=== PATIENT | female | born 1990 | race African-American/Black ===

== ENCOUNTER 2021-01-26 22:42 | Emergency (ER) | payer OTHER, SELFPAY ==
--- NOTE | ~2021-01-26 | XR_ITS ---
EXAMINATION: XR chest 1V portable INDICATION: Chest pain TECHNIQUE: Portable AP chest at 2303 hours COMPARISON: None available FINDINGS: The lungs are free of acute opacities. There is no pleural effusion or pneumothorax. The ca rdiomediastinal silhouette is normal. The visualized bones and soft tissues are unremarkable. IMPRESSION: 1. No acute cardiopulmonary abnormality. Reviewed, dictated and finalized at location A. PULLER
--- NOTE | ~2021-01-26 | CT_ITS ---
EXAMINATION: CTA chest PE protocol DATE: 01/26/2021 23:56 INDICATION: Chest pain TECHNIQUE: Computed tomography angiography (CTA) of the chest was performed with 100 mL Omnipaque-350 intravenous contrast timed to evaluate the pulmonary arteries. Coronal maximum intensity projection 3D-reconstructions were created by the technologist. The dose-length product (DLP) was 227.55 mGy-cm. Automated exposure control and iterative reconstruction technique were employed. COMPARISON: None. FINDINGS: The pulmonary arteries are well-opacified. No pulmonary embolism is identified. The lungs a re free of acute opacities. There is no pleural effusion or pneumothorax. No pathologically enlarged thoracic lymph nodes are identified. The heart size is normal. IMPRESSION: 1. No pulmonary embolism or acute cardiopulmonary abnormality. Reviewed, dictated and finalized at location A. BLAST OPERATOR
[2021-01-26 22:49] VITALS: BP 145/94; PULSE 85; RESP 18; TEMP 36.7
--- NOTE | 2021-01-26 22:55 | ECG_ITS ---
Measurements Intervals [place] Rate: 84 P: 49 [place]: 141 QRS: 68 QRSD: 99 T: 30 QT: 346 QTc: 409 Interpretive Statements SINUS RHYTHM WITH SINUS ARRHYTHMIA INCOMPLETE RIGHT BUNDLE BRANCH BLOCK BASELINE ARTIFACT- I, II, AVR, AVL, AVF BORDERLINE ECG Electronically Signed On 01-27-2021 9:27:08 VENDER by Jah Aleman D.O.
[2021-01-26 23:04] LABS: Basophils Absolute Auto 0.1 K/mm3 (0.0-0.1); Basophils Percent Auto 0.7 % (0.2-1.2); Eosinophils Absolute Auto 0.4 K/mm3 (0-0.3); Eosinophils Percent Auto 4.3 % (0-4.4); Hematocrit 31.5 % (37.0-47.0); Hemoglobin 9.3 g/dL (12.0-15.0); Immature Granulocyte Absolute 0.02 K/mm3 (0.00-0.031); Immature Granulocyte Percent A 0.2 % (0-0.5); Lymphocytes Absolute Auto 3.26 K/mm3 (0.9-3.2); Lymphocytes Percent Auto 37.3 % (18.3-44.2); Mean Corpuscular HGB Conc 29.5 g/dl (32-36); Mean Corpuscular Hemoglobin 21.5 pg (26-34); Mean Corpuscular Volume 72.9 fl (80-100); Mean Platelet Volume 8.9 fl (7.4-10.4); Monocytes Absolute Auto 0.7 K/mm3 (0.1-0.6); Neutrophils Absolute Auto 4.3 K/mm3 (1.3-6.7); Neutrophils Percent Auto 49.5 % (45.5-73.1); Platelet Count Result 322 k/mm3 (150-375); Red Blood Count 4.32 M/mm3 (4.2-5.4); Red Cell Distribution Width 15.9 % (11.5-14.5); White Blood Count 8.7 K/mm3 (4.5-10.0)
--- NOTE | 2021-01-26 23:09 | ED.GENADULT ---
HPI - General Adult General Chief complaint: Chest Pain Stated complaint: Chest pain Time Seen by Provider: 01/26/21 22:51 History of Present Illness HPI narrative: Patient with 30-year-old female who presents the emergency department with chief complaint of chest pain. The patient reports that for about a week or so she has been having some intermittent episodes of discomfort in her chest. Patient reports has had a tightness in her mid chest reports that is not improved by anything nor is it worsened by anything. The patient reports in the past she has had similar episodes and was told that there was no significant problems. Patient reports that she is fairly new to the area and does not currently have an active primary care physician. Patient denies nausea denies vomiting denies fever. Patient denies epigastric pain and right upper quadrant pain. Review of Systems Review of Systems: A 10 system review of systems was completed on the patient and is negative except for what is stated in the HPI. Nursing and ancillary documentation was reviewed. Exam Narrative: GENERAL: Well-appearing, well-nourished, and in no acute distress. HEAD: Normocephalic, atraumatic. EYES: PERRLA and EOMI. ENT: Nares clear, no rhinorrhea or epistaxis. Mucous membranes moist. NECK: Supple. CHEST: Clear to auscultation. No respiratory distress. HEART: Regular rate and rhythm. No murmur heard. Normal peripheral pulses. ABDOMEN: Soft, nontender, nondistended, normal active bowel sounds. EXTREMITIES: Normal range of motion. No edema. SKIN: Warm, dry, no rash. NEURO: No focal deficits. Alert and oriented x3. PSYCH: Normal mood and affect. Course Course Emergency Course: EKG is sinus rhythm rate of [address] elevation or ST depression Patient had a positive D-dimer test. CTA of the chest shows no evidence of pulmonary embolism or acute findings Vital Signs Vital signs: Vital Signs Temperature 36.7 C 01/26/21 22:49 Pulse Rate 85 01/26/21 22:49 Respiratory Rate 18 01/26/21 22:49 Blood Pressure 145/94 H 01/26/21 22:49 Temperature 36.7 C 01/26/21 22:49 Pulse Rate 91 01/26/21 23:53 Respiratory Rate 18 01/26/21 23:53 Blood Pressure 139/74 01/26/21 23:53 Pulse Oximetry 100 01/26/21 23:53 Medical Decision Making Vital Signs Vital Signs: Vital Signs Temperature 36.7 C 01/26/21 22:49 Pulse Rate 85 01/26/21 22:49 Respiratory Rate 18 01/26/21 22:49 Blood Pressure 145/94 H 01/26/21 22:49 Temperature 36.7 C 01/26/21 22:49 Pulse Rate 91 01/26/21 23:53 Respiratory Rate 18 01/26/21 23:53 Blood Pressure 139/74 01/26/21 23:53 Pulse Oximetry 100 01/26/21 23:53 Lab Data Result diagrams: 01/26/21 22:57 01/26/21 22:57 Labs: Lab Results 01/26/21 01/26/21 01/26/21 Range/Units 22:57 22:57 22:58 WBC 8.7 (4.5-10.0) K/mm3 RBC 4.32 (4.2-5.4) M/mm3 Hgb 9.3 L (12.0-15.0) g/dL Hct 31.5 L (37.0-47.0) % MCV 72.9 L (80-100) fl MCH 21.5 L (26-34) pg MCHC 29.5 L (32-36) g/dl RDW 15.9 H (11.5-14.5) % Plt Count 322 (150-375) k/mm3 MPV 8.9 (7.4-10.4) fl Immature Gran % (Auto) 0.2 (0-0.5) % Neut % (Auto) 49.5 (45.5-73.1) % Lymph % (Auto) 37.3 (18.3-44.2) % [place] % (Auto) 8.0 (2.6-8.5) % Eos % (Auto) 4.3 (0-4.4) % Baso % (Auto) 0.7 (0.2-1.2) % Lymph # (Auto) 3.26 H (0.9-3.2) K/mm3 [place] # (Auto) 0.7 H (0.1-0.6) K/mm3 Eos # (Auto) 0.4 H (0-0.3) K/mm3 Baso # (Auto) 0.1 (0.0-0.1) K/mm3 Abs Immat Gran (auto) 0.02 (0.00-0.031) K/mm3 Absolute Neuts (auto) 4.3 (1.3-6.7) K/mm3 Absolute Nucleated RBC 0.0 (0.0-0.012) K/mm3 Nucleated RBC % 0.0 (0.0-0.2) % PT 11.7 (11.1-14.7) Seconds INR 0.9 APTT 25.4 (22.3-36.8) SECONDS D-Dimer 1.49 H (<0.48) ug/mL Sodium 134 L (137-145) mmol/L Potassium 3.7 (3.4-5.0) mmol/L Chloride 101 (98-107)
[2021-01-26 23:14] LABS: INR 0.9; Prothrombin Time 11.7 Seconds (11.1-14.7)
[2021-01-26 23:15] LABS: Alanine Aminotransferase 14 U/L (4-35); Albumin Level 4.6 g/dL (3.5-5.1); Alkaline Phosphatase 71 U/L (38-126); Anion Gap 8 mmol/L (8-16); Aspartate Amino Transferase 29 U/L (14-36); Bilirubin,Total 0.2 mg/dL (0.2-1.3); Blood Urea Nitrogen 14 mg/dL (7-17); Calcium 9.3 mg/dL (8.4-10.2); Carbon Dioxide 25 mmol/L (22-30); Chloride 101 mmol/L (98-107); Estimated CRCL calculation 118 ml/min; Estimated Glomerular Filt Rate > 60; Glucose 106 mg/dL (65-110); Lipase 234 U/L (23-300); Potassium 3.7 mmol/L (3.4-5.0); Sodium 134 mmol/L (137-145)
[2021-01-26 23:15] LABS: Partial Thromboplastin Time 25.4 SECONDS (22.3-36.8)
[2021-01-26 23:17] LABS: D Dimer 1.49 ug/mL (<0.48)
[2021-01-26 23:26] LABS: NT Pro B Type Natriuretic Pept 43 pg/mL (5-100); Troponin I < 0.012 ng/mL (0.000-0.034)
[2021-01-26 23:33] LABS: Add Urine Microscopic? YES; Appearance Urine Cloudy (Clear); Bacteria Urine Trace /hpf; Bilirubin Urine Negative (Negative); Color Urine Straw (Yellow); Glucose Urine UA Negative (Negative); Ketones Urine Negative (Negative); Leukocyte Esterase Ur 2+ LEU/UL (Negative); Nitrate Urine Negative (Negative); Protein Urine Negative (Negative); RBC Urine 0-2 /hpf (0-2); Specific Grav Ur 1.008 (1.001-1.035); Squamous Epithelial Cell Urine Moderate /hpf (Few); Urobilinogen Urine Negative mg/dL (<2.0)
[2021-01-26 23:38] LABS: Blood Urine Negative (Negative)
[2021-01-26 23:53] VITALS: BP 139/74; PULSE 91; RESP 18; O2SAT 100
[2021-01-27 00:38] VITALS: BP 129/78; PULSE 66; RESP 16; O2SAT 100
== END 2021-01-27 00:39 | disposition home or self-care (01) ==
PROVIDERS: Emergency Provider Emergency Medicine
DX: R07.89 Other chest pain (principal)
CPT/HCPCS: 36415; 71045; 71275; 80053; 81001; 81025; 83690; 83880; 84484; 85025; 85380; 85610; 85730; 87086; 87088; 93005; 99284; Q9967

== ENCOUNTER 2021-08-03 14:25 | Emergency (ER) | payer OTHER, SELFPAY ==
--- NOTE | ~2021-08-03 | XR_ITS ---
EXAMINATION: XR finger 3rd RT min 2V INDICATION: Right third finger. TECHNIQUE: Three views of the right third finger are obtained. COMPARISON: None available FINDINGS: There is soft tissue swelling of the finger. Bone alignment is normal. There is no fracture . The joint spaces are normal. IMPRESSION: 1. Soft tissue swelling without acute osseous abnormality. Reviewed, dictated and finalized at location A.
[2021-08-03 14:32] VITALS: BP 135/91; PULSE 106; RESP 16; TEMP 37.2; O2SAT 99
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
== END 2021-08-03 15:22 | disposition home or self-care (01) ==
PROVIDERS: Emergency Provider Nurse Practitioner Family
DX: S60.031A Contusion of right middle finger without damage to nail, initial encounter (principal); W23.0XXA Caught, crushed, jammed, or pinched between moving objects, initial encounter
CPT/HCPCS: 29130; 73140; 99213; G0463

== ENCOUNTER 2022-01-22 00:38 | Observation (INO) | payer OTHER, SELFPAY ==
[2022-01-22] VITALS (26 sets, daily range): BP systolic 110–143; BP diastolic 69–95; PULSE 58–101; RESP 12–22; TEMP 36.3–36.9; O2SAT 95–100; BMI 24.1
--- NOTE | ~2022-01-22 | CT_ITS ---
EXAMINATION: CT abdomen pelvis w con DATE: 01/22/2022 02:41 INDICATION: Right lower quadrant abdominal pain. Mid abdominal pain. TECHNIQUE: Computed tomography (CT) of the abdomen and pelvis was performed with 100 mL Omnipaque 350 intravenous contrast. Automated exposure control and iterative reconstruction technique were employe d. The dose-length product was 522.09 mGy-cm. COMPARISON: Chest CT 01/26/2021 FINDINGS: The visualized portions of the lung bases are clear without pneumonia or pleural effusion. The heart size is normal. No pericardial effusion. There are cysts in the liver measuring up to 8 mm. The gallbladder, spleen, pancreas, adrenal glands, and left kidney are normal. There is a 9 mm cyst in right kidney. There is a 4.8 cm cyst in left ovary. The appendix is fluid-filled and dilated to 15 mm with wall thickening and adjacent fat stranding, consistent with appendicitis. No appendicolith. There are no pathologically enlarged lymph nodes. There is physiologic fluid in the pelvis. The bones are unremarkable. IMPRESSION: 1. Acute appendicitis. 2. 4.8 cm cyst in left ovary, likely a follicular cyst. Reviewed, dictated and finalized at location [facility]
[2022-01-22 01:02] LABS: Basophils Absolute Auto 0.1 K/mm3 (0.0-0.1); Basophils Percent Auto 0.5 % (0.2-1.2); Eosinophils Absolute Auto 0.2 K/mm3 (0-0.3); Eosinophils Percent Auto 1.8 % (0-4.4); Hematocrit 31.8 % (37.0-47.0); Hemoglobin 9.1 g/dL (12.0-15.0); Immature Granulocyte Absolute 0.03 K/mm3 (0.00-0.031); Immature Granulocyte Percent A 0.3 % (0-0.5); Lymphocytes Absolute Auto 2.74 K/mm3 (0.9-3.2); Lymphocytes Percent Auto 24.5 % (18.3-44.2); Mean Corpuscular HGB Conc 28.6 g/dl (32-36); Mean Corpuscular Volume 69.7 fl (80-100); Mean Platelet Volume 8.7 fl (7.4-10.4); Monocytes Absolute Auto 0.9 K/mm3 (0.1-0.6); Monocytes Percent Auto 8.3 % (2.6-8.5); Neutrophils Absolute Auto 7.2 K/mm3 (1.3-6.7); Neutrophils Percent Auto 64.6 % (45.5-73.1); Platelet Count Result 295 k/mm3 (150-375); Red Blood Count 4.56 M/mm3 (4.2-5.4); Red Cell Distribution Width 16.7 % (11.5-14.5); White Blood Count 11.2 K/mm3 (4.5-10.0)
[2022-01-22 01:10] LABS: Appearance Urine Clear (Clear); Bilirubin Urine Negative (Negative); Blood Urine Negative (Negative); Color Urine Yellow (Yellow); Glucose Urine UA Negative (Negative); Ketones Urine Negative (Negative); Leukocyte Esterase Ur 2+ LEU/UL (Negative); Nitrate Urine Negative (Negative); Protein Urine Negative (Negative); Specific Grav Ur 1.015 (1.001-1.035); Urobilinogen Urine 0.2 mg/dL (<2.0)
[2022-01-22 01:15] LABS: Bacteria Urine Trace /hpf; Mucus Urine Rare /lpf; Squamous Epithelial Cell Urine Moderate /hpf (Few); WBC Urine 21-30 /hpf
[2022-01-22 01:21] LABS: Add Urine Microscopic? YES
[2022-01-22 01:23] LABS: Alanine Aminotransferase 12 U/L (6-35); Albumin Level 4.7 g/dL (3.5-5.1); Alkaline Phosphatase 63 U/L (38-126); Anion Gap 10 mmol/L (8-16); Aspartate Amino Transferase 25 U/L (14-36); Bilirubin,Total 0.3 mg/dL (0.2-1.3); Blood Urea Nitrogen 13 mg/dL (7-17); Calcium 9.4 mg/dL (8.4-10.2); Carbon Dioxide 23 mmol/L (22-30); Chloride 100 mmol/L (98-107); Estimated CRCL calculation 117 ml/min; Estimated Glomerular Filt Rate > 60; Glucose 94 mg/dL (65-110); Lipase 177 U/L (23-300); Potassium 3.3 mmol/L (3.4-5.0); Sodium 133 mmol/L (137-145)
[2022-01-22] MEDS: SODIUM CHLORIDE 0.9% IV 2,000 ML 999 ML IV CONT (02:08)
--- NOTE | 2022-01-22 02:10 | ED.GENADULT ---
HPI - General Adult General Chief complaint: Abdominal Pain Stated complaint: ABD pain Time Seen by Provider: 01/22/22 01:35 Related Data Home Medications Medication Instructions Recorded Confirmed No Home Medications 08/03/21 08/03/21 Allergies Allergy/AdvReac Type Severity Reaction Status Date / Time No Known Allergies Allergy Verified 01/22/22 01:06 Exam Narrative: APPEARANCE: No apparent distress. Head: atraumatic. EYES: EOMI, NOSE: Atraumatic NECK: Trachea midline RESPIRATORY: No increased rate of breathing , clear to auscultation bilaterally CARDIOVASCULAR: RRR, ABDOMINAL: Patient has tenderness palpation the right lower quadrant. No guarding or rebound. MUSCULOSKELETAl: No obvious deformities NEURO: Alert. Moving 4/4 extremities SKIN:: Warm, dry. Normal color Course Vital Signs Vital signs: Vital Signs Temperature 97.4 F L 01/22/22 00:41 Pulse Rate 98 01/22/22 00:41 Respiratory Rate 16 01/22/22 00:41 Blood Pressure 134/84 01/22/22 00:41 Pulse Oximetry 100 01/22/22 00:41 Temperature 97.4 F L 01/22/22 00:41 Pulse Rate 92 01/22/22 02:00 Respiratory Rate 13 01/22/22 02:00 Blood Pressure 137/95 H 01/22/22 02:00 Pulse Oximetry 100 01/22/22 02:00 Medical Decision Making [facility] Narrative Medical decision making narrative: This is a 31-year-old female presenting to the ED with abdominal pain. Patient's history and physical are concerning for appendicitis. CT abdomen pelvis has been ordered. Patient's has been given 2 L of fluids and lab work has been obtained. Patient's white blood cell count 11.2. Patient was mildly hypokalemic with a potassium of 3.3. This will be repleted via IV. CT abdomen pelvis showed acute uncomplicated appendicitis. No abscess or perforation. Also revealed a 5 cm left adnexal cyst which they recommended non emergent ultrasound follow-up. Surgery was consulted. Patient was started on Zosyn. She has been made NPO. Patient will be admitted. Vital Signs Vital Signs: Vital Signs Temperature 97.4 F L 01/22/22 00:41 Pulse Rate 98 01/22/22 00:41 Respiratory Rate 16 01/22/22 00:41 Blood Pressure 134/84 11/23/22 00:41 Pulse Oximetry 100 01/22/22 00:41 Temperature 97.4 F L 01/22/22 00:41 Pulse Rate 92 01/22/22 02:00 Respiratory Rate 13 01/22/22 02:00 Blood Pressure 137/95 H 01/22/22 02:00 Pulse Oximetry 100 01/22/22 02:00 Lab Data Result diagrams: 01/22/22 00:53 01/22/22 00:53 Labs: Lab Results 01/22/22 01/22/22 01/22/22 Range/Units 00:53 00:53 00:53 WBC 11.2 H (4.5-10.0) K/mm3 RBC 4.56 (4.2-5.4) M/mm3 Hgb 9.1 L (12.0-15.0) g/dL Hct 31.8 L (37.0-47.0) % MCV 69.7 L (80-100) fl MCH 20.0 L (26-34) pg MCHC 28.6 L (32-36) g/dl RDW 16.7 H (11.5-14.5) % Plt Count 295 (150-375) k/mm3 MPV 8.7 (7.4-10.4) fl Immature Gran % (Auto) 0.3 (0-0.5) % Neut % (Auto) 64.6 (45.5-73.1) % Lymph % (Auto) 24.5 (18.3-44.2) % [place] % (Auto) 8.3 (2.6-8.5) % Eos % (Auto) 1.8 (0-4.4) % Baso % (Auto) 0.5 (0.2-1.2) % Lymph # (Auto) 2.74 (0.9-3.2) K/mm3 [place] # (Auto) 0.9 H (0.1-0.6) K/mm3 Eos # (Auto) 0.2 (0-0.3) K/mm3 Baso # (Auto) 0.1 (0.0-0.1) K/mm3 Abs Immat Gran (auto) 0.03 (0.00-0.031) K/mm3 Absolute Neuts (auto) 7.2 H (1.3-6.7) K/mm3 Absolute Nucleated RBC 0.0 (0.0-0.012) K/mm3 Nucleated RBC % 0.0 (0.0-0.2) % Sodium 133 L (137-145) mmol/L Potassium 3.3 L (3.4-5.0) mmol/L Chloride 100 (98-107) mmol/L Carbon Dioxide 23 (22-30) mmol/L Anion Gap 10 (8-16) mmol/L BUN 13 (7-17) mg/dL Creatinine 0.70 (0.7-1.0) mg/dL Estim Creat Clear Calc 117 ml/min Estimated GFR > 60 (59 - ) Glucose 94 (65-110) mg/dL Calcium 9.4 (8.4-10.2) mg/dL Total Bilirubin 0.3 (0.2-1.3) mg/dL AST 25 (14-36) U/L ALT
[2022-01-22 03:16] LABS: SARS-CoV-2 RNA PCR Negative
[2022-01-22] MEDS: POTASSIUM CHLORIDE INJ 40 MEQ in SODIUM CHLORIDE 0.9% IV 500 ML 130 MEQ IVPB (04:19)
--- NOTE | 2022-01-22 05:07 | ADMGEN ---
This patient, Leonela Sheehan, was admitted to Medical Room 261-01. Patient/family oriented to hospital policies and general routines including ID bracelet, bed and alarms, visiting hours, pain management, procedures, bathroom and other care routines, personal items, smoking policy, room service/diet, and visiting hours. Information on how to activate the Rapid Response Team has been discussed. Patient/Family are encouraged to report perceived risks to care and to ask questions if they do not understand what they are told or what they should do.
[2022-01-22] MEDS: LACTATED RINGERS 1,000 ML 125 ML IV CONT (11:16)
[2022-01-22] MEDS: MORPHINE SULFATE (*CRX) 2 MG/ML INJ 4 MG IV PUSH (11:18)
--- NOTE | 2022-01-22 11:53 | PM.CNGS ---
Assessment and Plan Assessment and plan (1) Acute appendicitis: Code(s): K35.80 - Unspecified acute appendicitis Status: Acute Assessment and Plan: I have reviewed the CT and discussed the findings with the patient. She has evidence of acute appendicitis. I have discussed medical and surgical treatment options with the patient. Discussed that there was a 30% chance of recurrent appendicitis if she chooses to treat with antibiotics alone. Patient is agreeable to proceeding with surgery. I have recommended urgent laparoscopic appendectomy, possible open. I discussed the procedure, risks, benefits, and alternatives. Questions were answered. She has been started on IV Zosyn and will continue this perioperatively. I discussed that any time symptoms have been present for more than 48 hours there is a chance of identifying perforation at the time of surgery. (2) Leukocytosis: Code(s): D72.829 - Elevated white blood cell count, unspecified Status: Acute History of Present Illness Consult details Consult date: 01/22/22 Reason for consult: other (appendicitis) Requesting physician: Merrill Velez MD Narrative: This is a 31-year-old woman who presented to the emergency department early this morning with right lower quadrant pain. She began experiencing some periumbilical pain about 4 days ago and then this eventually migrated to the right lower quadrant. She was experiencing nausea and vomiting associated with this and thought that maybe she had food poisoning. She had never experienced anything like this in the past. She denies any fevers or chills or any change in bowel habits. Workup in the emergency department showed evidence of leukocytosis and CT showed evidence acute appendicitis. She was started on IV antibiotics and has been admitted for further treatment. Review of Systems Review of Systems: All systems reviewed & are unremarkable except as noted in HPI and below Constitutional: Constitutional: Denies chills and Denies fever(s) Eyes: Eyes: Denies change in vision ENT: Denies hearing loss, Denies neck pain and Denies sore throat Cardiovascular: Cardiovascular: Denies chest pain and Denies dyspnea Respiratory: Respiratory: Denies cough, Denies dyspnea and Denies wheezing Gastrointestinal: Gastrointestinal: Reports as per HPI Genitourinary: Genitourinary: Denies hematuria and Denies dysuria Musculoskeletal: Musculoskeletal: Denies arthralgias, Denies joint swelling and Denies neck pain Allergic/Immunologic: Allergic/Immunologic: Denies wheezing PMFSH Surgical History Surgical History (Updated 01/22/22 @ 11:55 by Mckay Machuca DO) History of knee surgery Family History Family History Other Unknown family medical history Social History Social History Smoking status: Never smoker Alcohol intake: never Substance use: never Lack of Transportation: No Lack of Food: Never True Current Housing: I Have Housing Concerned About Future Housing: No Difficulty Paying Gas/Electric Bills: No Difficulty Paying for Meds: No Currently Unemployed: No Education: High School Diploma/GED Difficulty w/ Childcare or Family Care: No Spiritual care concerns: No Meds Home Medications and Allergies Home Medications Medication Instructions Recorded Confirmed Type No Home Medications 08/03/21 01/22/22 History Allergies Allergy/AdvReac Type Severity Reaction Status Date / Time No Known Allergies Allergy Verified 01/22/22 01:06 Vital Signs Vital Signs - 24 hr 01/22/22 00:41 01/22/22 01:04 01/22/22 01:15 Temperature 36.3 C L Pulse Rate 98 101 H 87 Respiratory Rate 16 17 16 Blood Pressure 134/84 140/90 132/84 Pulse Oximetry 100 98 98 Oxygen Delivery 01/22/22 01:30 01/22/22 01:45 01/22/22 02:00 Temperature Pulse Ra
[2022-01-22] MEDS: LACTATED RINGERS 1,000 ML 30 ML IV CONT ×2 (14:25→15:55)
--- NOTE | 2022-01-22 14:42 | WPDANESEPPF ---
Anes - Initial Pre Proc Eval Procedure: Operation Date: 01/22/22 17:00 Proposed Procedures p Laparoscopic Appendectomy - Mckay Machuca DO Date/Time: 01/22/22 14:42 Surgeon: Leda Peralta DO Pre Op Diagnosis: appendicitis Patient Data Age: 31 Gender: F Height: 1.83 m Weight: 80.7 kg Last Vital Signs Temp 36.4 C 01/22/22 05:07 Pulse 72 01/22/22 05:07 Resp 16 01/22/22 05:07 BP 129/71 01/22/22 05:07 Pulse Ox 100 01/22/22 05:07 O2 Del Method Room Air 01/22/22 08:00 Allergies Allergy/AdvReac Type Severity Reaction Status Date / Time No Known Allergies Allergy Verified 01/22/22 14:43 Home Medications Medication Instructions Recorded Confirmed Type No Home Medications 08/03/21 01/22/22 History Laboratory Tests 01/22/22 01/22/22 01/22/22 00:53 00:53 00:53 WBC 11.2 K/mm3 H K/mm3 (4.5-10.0) RBC 4.56 M/mm3 M/mm3 (4.2-5.4) Hgb 9.1 g/dL L g/dL (12.0-15.0) Hct 31.8 % L % (37.0-47.0) MCV 69.7 fl L fl (80-100) MCH 20.0 pg L pg (26-34) MCHC 28.6 g/dl L g/dl (32-36) RDW 16.7 % H % (11.5-14.5) Plt Count 295 k/mm3 k/mm3 (150-375) MPV 8.7 fl fl (7.4-10.4) Immature Gran % (Auto) 0.3 % % (0-0.5) Neut % (Auto) 64.6 % % (45.5-73.1) Lymph % (Auto) 24.5 % % (18.3-44.2) [place] % (Auto) 8.3 % % (2.6-8.5) Eos % (Auto) 1.8 % % (0-4.4) Baso % (Auto) 0.5 % % (0.2-1.2) Lymph # (Auto) 2.74 K/mm3 K/mm3 (0.9-3.2) [place] # (Auto) 0.9 K/mm3 H K/mm3 (0.1-0.6) Eos # (Auto) 0.2 K/mm3 K/mm3 (0-0.3) Baso # (Auto) 0.1 K/mm3 K/mm3 (0.0-0.1) Abs Immat Gran (auto) 0.03 K/mm3 K/mm3 (0.00-0.031) Absolute Neuts (auto) 7.2 K/mm3 H K/mm3 (1.3-6.7) Absolute Nucleated RBC 0.0 K/mm3 K/mm3 (0.0-0.012) Nucleated RBC % 0.0 % % (0.0-0.2) Sodium 133 mmol/L L mmol/L (137-145) Potassium 3.3 mmol/L L mmol/L (3.4-5.0) Chloride 100 mmol/L mmol/L (98-107) Carbon Dioxide 23 mmol/L mmol/L (22-30) Anion Gap 10 mmol/L mmol/L (8-16) BUN 13 mg/dL mg/dL (7-17) Creatinine 0.70 mg/dL mg/dL (0.7-1.0) Estim Creat Clear Calc 117 ml/min ml/min Estimated GFR > 60 (59 - ) Glucose 94 mg/dL mg/dL (65-110) Calcium 9.4 mg/dL mg/dL (8.4-10.2) Total Bilirubin 0.3 mg/dL mg/dL (0.2-1.3) AST 25 U/L U/L (14-36) ALT 12 U/L U/L (6-35) Alkaline Phosphatase 63 U/L U/L (38-126) Total Protein 9.0 g/dL H g/dL (6.3-8.2) Albumin 4.7 g/dL g/dL (3.5-5.1) Lipase 177 U/L U/L (23-300) Urine Color Yellow (Yellow) Urine Appearance Clear (Clear) Urine pH 5.0 (5.0-9.0) Ur Specific [place] 1.015 (1.001-1.035) Urine Protein Negative mg/dL mg/dL (Negative) Urine Glucose (UA) Negative mg/dL mg/dL (Negative) Urine Ketones Negative mg/dL mg/dL (Negative) Ur Blood (Man) Negative (Negative) Urine Nitrate Negative (Negative) Urine Bilirubin Negative (Negative) Urine Urobilinogen 0.2 mg/dL mg/dL (<2.0) Leukocyte Esterase Rfl 2+ TI/UL H TI/UL (Negative) Urine RBC 6-10 /hpf H /hpf (0-2) Urine WBC 21-30 /hpf H /hpf Ur Squamous Epith Cells Moderate /hpf H /hpf (Few) Urine Bacteria Trace /hpf /hpf Urine Mucus Rare /lpf /lpf SARS-CoV-2 RNA (RT-PCR) 01/22/22 02:33 WBC RBC Hgb Hct MCV MCH MCHC RDW Plt Count MPV Immature Gran % (Auto) Neut % (Auto) Lymph % (Auto) [place] % (Auto)
[2022-01-22] MEDS: SCOPOLAMINE 1.5 MG PATCH TRANSDERM (14:49)
--- NOTE | 2022-01-22 15:00 | WPDHPUPDATE1 ---
History and Physical Update Update Date/Time: 01/22/22 15:00 History and Physical has been reviewed, including an updated exam of the patient. There are NO changes in the patient's condition. Risks, benefits, and alternatives have been discussed and questions answered. Patient agrees to proceed with procedure.
[2022-01-22] MEDS: BUPIVACAINE/EPINEPHRINE 0.25% 50 ML VIAL 30 ML INFILTRATE (15:30)
--- NOTE | 2022-01-22 15:51 | W.PM.PROC2 ---
Procedure Note - Detailed Date of Procedure 01/22/22 Pre-op Diagnosis appendicitis Post-op Diagnosis Same Procedure Performed Laparoscopic appendectomy Surgeon Mckay Machuca, DO Anesthesia General and Local (0.5% bupivacaine with epinephrine) Indications This is a 31-year-old woman who presented to the emergency department this morning with right lower quadrant pain that started several days ago. Her pain was periumbilical and then migrated to the right lower quadrant. She was having significant nausea and vomiting, but denied any fevers. She was noted to have a slightly elevated white blood count and CT showed evidence of acute appendicitis. She was then admitted and started on IV antibiotics. Discussions were made with the patient about treatment options and decision was made to proceed with laparoscopic appendectomy, possible open. Findings Laparoscopic appendectomy was performed. The appendix was identified in a slightly retrocecal location. The appendix appeared inflamed but there was no evidence of perforation or abscess. The base of the appendix appeared healthy and viable. The left ovarian cyst was visualized but appeared to be a simple cyst. No other intra-abdominal abnormalities were noted. The appendix was removed and sent to the lab for pathology. Description of Procedure Procedure as well as risks, benefits, and alternatives were explained to the patient. The patient agreed to proceed. Written consent was obtained and placed in chart prior to procedure. The patient was brought back to surgical suite. She was placed supine on operating table. Time-out was done to confirm the patient and procedure. The patient was then intubated by the Anesthesia Department. Her abdomen was prepped and draped in sterile fashion using chlorhexidine prep. A 12 mm incision was made at the inferior portion of the umbilicus. Blunt dissection was carried out down to the linea alba. The linea alba was then incised using a 15 blade scalpel. Then bluntly entered into the peritoneal cavity. A 12 mm trocar was then inserted, and carbon dioxide insufflation was used to create a pneumoperitoneum. The camera was inserted and the abdomen was inspected. No immediate abnormalities were identified. The patient was then placed in slight Trendelenburg position and rotated to the left. A 5 mm incision was made in the suprapubic region in midline and a 5 mm trocar was inserted under direct visualization. A 5 mm incision was made in the left lower quadrant and a 5 mm trocar was inserted under direct visualization. The right lower quadrant was carefully inspected. The cecum was identified and then this was traced back to the appendix. The appendix was identified and grasped at the mesoappendix and lifted anteriorly. Careful blunt dissection was carried out at the base of the appendix through the mesoappendix using a [place] grasper. An Endo-SANJAY 45 mm blue load stapler was then advanced across the base of the appendix and clamped and fired. A white reload was then clamped across the mesoappendix and fired. This freed up our appendix completely. It was then placed in an EndoCatch bag and removed through the umbilical port. The staple lines were then inspected. Hemostasis appeared adequate and the staple lines appeared secure. The area was then irrigated with sterile saline. The pelvis was then carefully inspected and irrigated with sterile saline as well and the remainder of the abdomen was carefully inspected. The patient was then flattened out in bed. One final inspection was made around the abdominal cavity and no other abnormalities were seen. The ports were then removed under direct visualization. The camera was removed and the pneumoperitoneum was released. The fascia of the umbilical incision was reapproximated using an 0 Vicryl [id number]-rn-bfajx suture. 0.5% bupivacaine with epinephrine was infiltrated locally around each of the incisions. The skin of t
[2022-01-22] MEDS: fentaNYL CITRATE INJ (*CRX) 100 MCG/2 ML VIAL 25 MCG IV PUSH ×8 (16:12→16:41)
[2022-01-22] MEDS: HYDROmorphone HCL INJ (*CRX) 1 MG/ML SYR 0.5 MG IV PUSH (16:56)
--- NOTE | 2022-01-22 16:56 | SUR.PHASEI ---
1649- Call to Tressa Ramos CRNA patient complaining of severe pain to lower abdominal incision after 200MCG Fentanyl IVP. Orders obtained for 0.5MG Dilaudid IVP once. 1655- Dilaudid 0.5MG IVP given see APR.
[2022-01-22] MEDS: ONDANSETRON INJ 4 MG/2 ML VIAL IV PUSH (17:08)
--- NOTE | 2022-01-22 19:03 | PM.DS ---
DS: Admitting Diagnosis Discharge Date 01/22/22 Admitting Diagnosis Acute appendicitis DS: Discharge Diagnosis Discharge Diagnosis (1) Acute appendicitis: Code(s): K35.80 - Unspecified acute appendicitis Status: Acute DS: Summary Hospital Course Reason for hospitalization: Acute appendicitis Hospital Course: This is a 31-year-old woman who presented to the emergency department early in the morning on 01/22/2022 with right lower quadrant abdominal pain. She was found to have evidence of acute appendicitis and she was started on IV Zosyn and admitted for further treatment. Discussions were made with the patient about treatment options and she chose to proceed with laparoscopic appendectomy. This was performed on 01/22/2022. Surgery was uncomplicated and appendix did not appear perforated. She was returned to the surgical floor postoperatively and her diet and activity were advanced as tolerated. Later that evening she was tolerating a regular diet, her pain was controlled, vitals remained stable, and she was ambulating in the halls. She was discharged on postop day 0. Status at Discharge Functional status at discharge: independent ambulation Overall status at discharge: patient is progressing back to baseline Time Spent with Patient Time attestation: Total time spent providing and/or coordinating discharge services: Time spent: Less than 30 minutes Exam Narrative: Unchanged from preoperative exam except for surgical changes. DS: Data Data Completed and Pending Completed studies during hospitalization: Pending at discharge 01/22/22 15:30 Surgical [PTH] Routine Discharge Plan Discharge Attending physician on discharge: Leda Peralta Consulting providers: Mika Eng ; Omkar Montez V. ; Mckay Short Discharging Clinician: Mckay Short Patient Disposition: Home, Self-Care Activity: other - see discharge instructions Diet: other - see discharge instructions Wound Care Instructions: other - see discharge instructions Discharge Instructions: DISCHARGE INSTRUCTION SHEET FOR HERNIA, GALLBLADDER AND APPENDIX SURGERIES DR. SHORT PATIENT TO TAKE HOME 1. May shower in 24 hours, no soaking in bath x 2weeks. 2. Call office for: Wound increasingly painful or bleeding Vomiting Fever of greater than 101 degrees 3. If no bowel movement for three days, take 1 oz. (30 ml) Milk of Magnesia or MiraLax 17g 1 to 2 times daily. 4. No heavy lifting > 10-15 pounds x weeks for hernia repairs and 2 weeks for laparoscopic cholecystectomy or appendectomy. 5. No driving for 3 days or while taking narcotic pain medications. 6. Ice to surgical site for 48 hours (30 min on, then 30 min off). 7. Up walking 10-30 minutes three times per day. 8. Resume previous home medications. 9. Follow-up 10-14 days in office for wound check or as previously scheduled. ([id number]) 10. Oral pain medications prescription to be sent to pharmacy. Take Tylenol 500mg every 6 hours and Ibuprofen 600mg every 6 hours for the first 2 days, then as needed. 11. NUTRITION: Start out by drinking fluids and increase your diet as tolerated. If you experience nausea, try dry toast, crackers, and 7-UP. If nausea or vomiting persists, contact your surgeon?s office. 12. Gallbladders-Low Fat Diet for 2 weeks (send care note of low fat diet) 13. Inguinal Hernias-wear scrotal support for 48 hours 14. Abdominal Hernias-if sent home with abdominal binder, wear for the first 2 weeks (may remove to shower or at night to sleep). Remove the Scopolamine patch that was placed behind your ear in 72 hours or less. Wash your hands after touching.
[2022-01-22] MEDS: IBUPROFEN 600 MG TABLET PO (20:01)
== END 2022-01-22 21:53 | disposition home or self-care (01) ==
LOC: ANHED 03:57 → ANH2MED 05:04
PROVIDERS: Admitting Provider Surgery; Emergency Provider Emergency Medicine; Visit Provider Surgery
PROC: 0DTJ4ZZ Resection of Appendix, Percutaneous Endoscopic Approach (ICD-10-PCS; CPT 44970; principal; 2022-01-22 17:00)
DX: K35.80 Unspecified acute appendicitis (principal); E87.6 Hypokalemia; N83.8 Other noninflammatory disorders of ovary, fallopian tube and broad ligament; Z20.822 Contact with and (suspected) exposure to COVID-19; D72.829 Elevated white blood cell count, unspecified; E66.3 Overweight; Z68.24 Body mass index [BMI] 24.0-24.9, adult
CPT/HCPCS: 44970; 36415; 74177; 80053; 81001; 81025; 83690; 85025; 87086; 88304; 96361; 96365; 96375; 99285; A9270; G0378; J1100; J1170; J2270; J2405; J2543; J2704; J3010; J3480; J7030; J7040; J7120; Q9967; U0003; U0005